=== PATIENT | female | born 1955 | race Caucasian/White ===

== ENCOUNTER 2019-08-05 10:09 | Inpatient (IN) ==
--- NOTE | 2019-08-01 13:42 | Anesthesiology Consultation ---
Date of Service August 01, 2019 Assessment & Plan (1) Encounter for pre-operative examination: Chart Review Chart Review: Acceptable Risk for Surgery and Patient NOT seen in Pre Admission Testing Consults Requested none Would it be possible to obtain an ECG from her hospital stay in January 2019 at [facility]. Patient stated she had an arrhythmia while hospitalized for pneumonia but it resolved. History Surgery Operation Date: 08/05/19 12:00 Proposed Procedures p Robotic Left Video Assisted Thoracoscopy with Upper Lobectomy and Mediastinal Lymphadenectomy - Josh Thurman MD, FACS Height/Weight Height: 5 ft 6 in Weight: 77.111 kg Allergies Allergy/AdvReac Type Severity Reaction Status Date / Time adhesive Allergy Unknown SKIN Verified 08/01/19 11:11 BLISTERS/ITCHY erythromycin base Allergy Unknown RASH Verified 08/01/19 11:11 Penicillins Allergy Unknown HIVES Verified 08/01/19 11:11 Medications Home Medications Medication Instructions Recorded Confirmed Last Taken albuterol sulfate [ProAir HFA] 2 puff INHALATION UD PRN 09/22/18 08/01/19 10/18/18 03:30 fluoxetine 20 mg PO QAM 09/22/18 08/01/19 10/18/18 03:30 fluticasone propion-salmeterol 1 inh INHALATION BID 09/22/18 08/01/19 10/18/18 03:30 [Advair Diskus] lorazepam 0.5 mg PO UD PRN 09/22/18 08/01/19 Unknown montelukast [Singulair] 10 mg PO QAM 09/22/18 08/01/19 10/17/18 09:00 ferrous gluconate 256 mg (28 mg 256 mg PO DAILY tab 07/26/19 08/01/19 Unknown iron) tablet Past Medical History Medical History Asthma CONTROLLED WITH RESCUE INHALER USE ONCE DAILY Depression History of anxiety History of cardiac arrhythmia WHILE HOSPITALIZED W/ PNEUMONIA 01/2019 [facility] - RESOLVED - NO MEDS. 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 Lung mass Persistent cough Recurrent pneumonia Past Family History Family History Mother Family history of diabetes mellitus Hypertension Heart disease Grandmother Family history of diabetes mellitus Past Surgical History Surgical History History of arthroplasty of left hip Left ADAN 10-18-2018. SAB converted to GA for inadequate block. Tolerated GETA without issues. History of arthroplasty of right hip Hx of colonoscopy Hx of dilation and curettage Hx of hysterectomy Nausea and vomiting after administration of anesthetic agent Social History Smoking Status: Never smoker Do You Dip or Chew Tobacco: No Hx Alcohol Use: No Hx Substance Use: No substance use type: does not use Testing Laboratory Results CBC 07/27/2019. WBC 6.2, hgb 11.9, hct 38.1, plt 335 Electrocardiogram Date: 09/28/18 Findings: + SB @ (56) Sinus bradycardia. LAD. Chest X-Ray Date: 05/07/19 Patchy bilateral lower lobe airspace opacity. worse in the left lung base, which may represent multifocal pneumonia.
[~2019-08-05 10:09] MED LIST: DEXAMETHASONE SOD INJ 4 MG/ML VIAL ONE; GLYCOPYRROLATE 0.2 MG/ML VIAL ONE; LIDOCAINE HCL 2% 2 ML VIAL/AMP(20MG/ML) INFIL ONE; LR 15ML/HR IV SCH; METHYLENE BLUE 0.5% 10 ML VIAL ONE; MIDAZOLAM HCL 1 MG/ML 2ML VIAL ONE; NEOSTIGMINE METHYLSULFATE 5 MG/5 ML SYR ONE; ONDANSETRON INJ 2 MG/ML 2 ML VIAL ONE; PHENYLEPHRINE HCL 10 MG/ML VIAL ONE; PROPOFOL IV EMULSION 10 MG/ML 20 ML VIAL IV ONE; fentaNYL citrate 100 MCG/2 ML VIAL ONE
[2019-08-05] MEDS ORDERED: BUPIVACAINE 0.5 % 5 MG/1 ML MPF 30ML VIAL ONE (11:56)
[2019-08-05] MEDS ORDERED: BUPIVACAINE LIPOSOME 1.3% 266 MG/20 ML VIAL ONE (11:57)
[2019-08-05] MEDS ORDERED: SODIUM CHLORIDE 0.9% PF 50 ML VIAL ONE (11:57)
[2019-08-05] MEDS ORDERED: SCOPOLAMINE 1.5 MG TDSY ONE (12:06)
--- NOTE | 2019-08-05 12:13 | History & Physical Bridge Note ---
Date of Service August 05, 2019 History & Physical Bridge Note I have examined the patient, reviewed the History & Physical and in the interval since the performance of the History & Physical I have noted the following changes of clinical significance: no changes noted
[2019-08-05] MEDS ORDERED: ALBUMIN HUMAN 5% 12.5 GM/250 ML VIAL IV ONE (12:23)
[2019-08-05] MEDS ORDERED: ePHEDrine sulfate 50 MG/ML AMP IV PRN (14:08)
[2019-08-05] MEDS ORDERED: ONDANSETRON INJ 2 MG/ML 2 ML VIAL IV PRN (14:08)
[2019-08-05] MEDS ORDERED: ATROPINE SULFATE 0.1 MG/ML 10ML SYR IV PRN (14:08)
[2019-08-05] MEDS ORDERED: ALBUTEROL HFA INHALER 8.5 GM ONE (14:23)
[2019-08-05] MEDS ORDERED: PHENYLEPHRINE 100MCG/ML 5ML SYR ONE (14:23)
[2019-08-05] MEDS ORDERED: ePHEDrine sulfate 50 MG/ML SYR ONE (14:23)
--- NOTE | 2019-08-05 16:14 | Post Operative Brief Note ---
PG Immediate Post Op with CF Date of Surgery August 05, 2019 Pre & Post Diagnosis Operation Date: 08/05/19 12:00 Pre-Op Diagnosis: Left Lung Carcinoid Post-Op Diagnosis: Left Lung Carcinoid Procedure Operation Date: 08/05/19 12:00 Actual Procedures p Robotic Video Assisted Left Thoracoscopy with Left Upper Lobectomy and Me diastinal Lymphadenectomy(Left) - Josh Thurman MD, FACS Surgeon Josh Thurman MD, FACS Office Communication Professor Eduardo MCRAE, Jeanne Awad MD Estimated Blood Loss 100 Findings Consistent with Post-Op Diagnosis Specimens Specimen Description: A. Level L8 lymph node x's2 B. Level L9 lymph node C. Level 7 lymph node D. Level L10 lymph node x's2 E. L11 lymph nodes x5 F. L12 lymph node G. Left upper lobe H. Level 5 lymph node I. Level 6 lymph node Drains Chest Tube (24 Fr. Thal chest tube) and Can Catheter
[2019-08-05] MEDS ORDERED: ROCURONIUM BROMIDE 10 MG/ML 5 ML VIAL ONE (16:18)
[2019-08-05] MEDS ORDERED: METOCLOPRAMIDE HCL INJ 5 MG/ML 2 ML VIAL IV ONE (16:30)
--- NOTE | 2019-08-05 16:43 | XRay Report ---
XR chest 1V portable HISTORY: Postop left upper lobectomy. COMPARISON: Chest CT 10/04/2018. FINDINGS: The left-sided chest tube is terminates in the left midlung zone. Suture material within th e left hilum consistent with postoperative change. Volume loss within the left hemithorax likely due to the recent lobectomy. No definite left-sided pneumothorax. The right lung is clear. No pleural eff usions. The heart is borderline enlarged. IMPRESSION: Left-sided chest tube terminates in the left midlung zone. No definite pneumothorax. Electronically signed by: Hector Hernandez M.D. 08/05/2019 4:42 PM
[2019-08-05] MEDS: fentaNYL citrate 100 MCG/2 ML VIAL IV PRN ×2 (16:52→16:57)
--- NOTE | 2019-08-05 17:03 | Anesthesiology Progress Note ---
Date of Service August 05, 2019 Anesthesia Post Procedure Vital Signs Vital Signs: Temp Pulse Pulse Resp BP BP Pulse Ox 08/05/19 17:00 85 16 131/61 100 08/05/19 16:50 61 16 146/70 H 100 08/05/19 16:40 71 20 138/68 100 08/05/19 16:33 36.3 C L 69 20 127/68 100 08/05/19 10:29 36.8 C 72 20 146/68 H 98 Pain Intensity Left Chest: Pain Intensity: 5 Transfer of Care Handoff Completed per policy Notes Mental Status: alert / awake / arousable Patient Amnestic to Procedure: Yes Nausea / Vomiting: adequately controlled Pain: adequately controlled Airway Patency, RR, SpO2: stable & adequate BP & HR: stable & adequate Hydration State: stable & adequate Anesthetic Complications: no major complications apparent
--- NOTE | 2019-08-05 17:11 | Operative Report ---
DATE OF OPERATION: 08/05/2019 PREOPERATIVE DIAGNOSIS: Carcinoid obstructing left mainstem bronchus, left upper lobe. POSTOPERATIVE DIAGNOSIS: Carcinoid obstructing left mainstem bronchus, left upper lobe. PROCEDURE: Robot-assisted thoracoscopic left upper lobectomy with mediastinal lymphadenectomy. SURGEON: Josh Thurman MD. NETWORK OPERATIONS LEAD: Gus Awa (Mr. Billings was present for the entire case and was present at the patient's bedside passing instruments and material while I was at the console and was there to close the skin incisions at the conclusion). SECOND NETWORK OPERATIONS LEAD: Jayde Awad MD ANESTHESIA: General anesthesia, endotracheal intubation using double lumen tube. SPECIFICS OF PROCEDURE AND FINDINGS: Ms. Salas is a 64-year-old female who has been followed by Dr. Ed Weathers from [facility], had recurrent pneumonias or postobstructive due to obstructing carcinoid in her left upper lobe bronchus. I evaluated these films and did not feel that a local resection would suffice. The patient has been sick multiple times from this and is quite eager to have the surgery performed. On 08/05/2019, the patient underwent uncomplicated left upper lobectomy with a da Isaac robot with a mediastinal lymphadenectomy. She tolerated it well with negligible blood loss and was extubated in the room. DESCRIPTION OF PROCEDURE: The patient brought to the operating room, laid in supine position. General anesthesia induced and endotracheal intubation was performed with a double lumen tube. After appropriate monitoring lines had been placed, the patient was positioned in the right lateral decubitus position. Left chest prepped and draped in usual sterile fashion. After appropriate timeout had been called and antibiotics given prophylactically, an incision was made for a 5 mm port just anterior to mid axillary line and seventh interspace for the camera. We could see there were no adhesions. A 5 mm posterior scope was placed and then an 8 mm scope was placed about 10 cm from the camera port. The camera port was switched to a 12 mm port. A 10 cm medial to this, another 8 mm port was placed. Finally, the assistance port was placed anteriorly just above the diaphragm between the camera port and the anterior port. Later in the case, we made another port posteriorly to position our stapler. It should be noted that Exparel 266 mg and 20 mL of solution were mixed with 30 mL of 0.25% bupivacaine and 250 mL of normal saline. The solution was then used to inject each of the port sites. It was also used to perform an intercostal block from 2nd to the 12th rib under thoracoscopic guidance by filling each of the interspaces with the solution. The robot was then docked. Inferior pulmonary ligament was taken down first in the level 9 and level 8 lymph nodes were harvested. I then went up and dissected out the level 7 packet of lymph nodes as well as a level 10 lymph nodes. We also took out the level 5 and level 6 coming around the top of the hilum. I dissected out the posterior branches to the upper lobe quite a bit during this and removing these lymph nodes and took out a level 11 node also. The lung was then retracted posteriorly and inferiorly and I went into the fissure which was almost complete. I completed this fissure posteriorly just using cautery which worked very nicely. We were able to identify the branches quite nicely the pulmonary artery, we dissected out. I then brought this down anteriorly and dissected out a large lingual branch. I completed the fissure sharply anteriorly. I then retracted the lung completely posteriorly and came up posterior to the phrenic nerve and dissected out all of the fat and lymph node packet to the level 10 and complete the level 5 and 6. This had completed our dissection around the hilum. Endo-JAIDEN stapler was used to divide the 2 branches posteriorly. I then divided the lingual artery. We then dissected out the vein and our anterior port was not in a good place to fire the staple. For this reason, another 12 mm port was placed posteriorly and the stapler came down quite nicely and we were able to take the superior pulmonary vein. I put a clip x2 and proximally and 1 distally and divided the lingual vein. This opened up the bronchus quite nicely and we removed several large lymph nodes. We then had a good angle to take the A1 and A2 segment of the left upper lobe with an Endo-JAIDEN stapler. This left just the bronchus, which was divided with an Endo-JAIDEN stapler. There was really very little in the way of bleeding. We really did not see an air leak upon inflating the lung. A large Endobag was used to remove the left upper lobe through the assistance port anteriorly, although it had to be opened a few centimeters. A 24-Chinese chest tube was placed through the camera port and directed towards the apex. A 0 Vicryl was used to close the muscle layer of the 12 mm port posteriorly as well as the assistance port, which had been opened and removed the specimen. A 4-0 Monocryl was used in running subcuticular fashion to approximate the wound edges. A large silk suture was used to hold the chest tube in place. The patient really had no air leak. Antimicrobial dressings were placed and the patient was extubated in the room. She tolerated it very well. I attest to the content of the Intraoperative Record and any orders documented therein. Any exception s are noted below.
[2019-08-05] MEDS ORDERED: LORazepam 0.5 MG TAB PO PRN (17:49)
[2019-08-05] MEDS ORDERED: ALBUTEROL HFA 8 GM INHALER INH PRN (18:00)
[2019-08-05] MEDS: D5W AND 1/2NSS 1,000 ML IV SCH (18:09)
[2019-08-05] MEDS: METOCLOPRAMIDE HCL INJ 5 MG/ML 2 ML VIAL IV SCH (18:09)
[2019-08-05] MEDS: ACETAMINOPHEN 1,000 MG/100 ML VIAL IV SCH (20:13)
[2019-08-05] MEDS: FLUTICASONE/SALMETEROL (ADVAIR) 500/50 INH 14 PUFF INH SCH (20:40)
[2019-08-05] MEDS: DOCUSATE SODIUM 100 MG CAP PO SCH (20:41)
[2019-08-05] MEDS: OXYCODONE HCL IR 5 MG TAB (IMMEDIATE RELEASE) PO PRN (20:58)
[2019-08-06] MEDS: MoRPHine SULFATE 2 MG/ML CARP IV PRN (00:01)
[2019-08-06] MEDS: ONDANSETRON INJ 2 MG/ML 2 ML VIAL IV PRN (00:01)
[2019-08-06] MEDS: METOCLOPRAMIDE HCL INJ 5 MG/ML 2 ML VIAL IV SCH ×2 (02:03→08:42)
[2019-08-06] MEDS: D5W AND 1/2NSS 1,000 ML IV SCH (03:34)
[2019-08-06] MEDS: ACETAMINOPHEN 1,000 MG/100 ML VIAL IV SCH ×3 (03:37→20:25)
[2019-08-06 06:11] LABS: Basophils # (auto) 0.01 K/uL (0-0.2); Basophils % (auto) 0.1 %; Hematocrit (blood only) 32.5 % (37-47); Hemoglobin 10.7 g/dL (12.0-16.0); Immature Granulocytes # (auto) 0.04 K/uL (0.00-0.02); Immature Granulocytes % (auto) 0.4 %; Lymphocytes # (auto) 0.68 K/uL (1.2-3.4); Mean Corpuscular Hemoglobin 29.2 pg (25-34); Mean Corpuscular Volume 88.6 fL (80-100); Mean Platelet Volume 8.9 fL (7.4-10.4); Monocytes # (auto) 1.11 K/uL (0.11-0.59); Monocytes % (auto) 9.8 %; Neutrophils % (auto) 83.7 %; Platelet Count 282 K/uL (130-400); RDW Coefficient of Variation 14.6 % (11.5-14.5); RDW Standard Deviation 47.2 fL (36.4-46.3); Red Blood Count 3.67 M/uL (4.2-5.4); White Blood Count 11.34 K/uL (4.8-10.8)
[2019-08-06 06:17] LABS: Mean Corpuscular Hgb Conc 32.9 g/dL (32-36)
[2019-08-06 06:32] LABS: BUN Creatinine Ratio 20.4 (10-20); Calcium 8.4 mg/dl (8.5-10.1); Creatinine Clr Calc Pharmacy 85.5 ml/min; Est GFR (African American) 106.1; Est GFR (Non-African American) 91.6; Potassium 4.4 mmol/L (3.5-5.1)
--- NOTE | 2019-08-06 07:07 | XRay Report ---
XR chest 1V portable CLINICAL HISTORY: [facility] COMPARISON STUDY: Chest radiograph August 05, 2019. FINDINGS: Left basilar chest tube has been partially withdrawn. Small amount of subcutaneous gas with in the left chest wall is noted. There are postoperative findings within the left lung. No pneumothor ax is visualized. There is no evidence for pulmonary edema or pneumonia. Left suprahilar nodular opac ity is present. This may reflect primary vessels or postsurgical change. IMPRESSION: 1. Partial withdrawal of the left basilar chest tube. No pneumothorax. 2. Left suprahilar nodular opacity which may reflect pulmonary vessels or postsurgical change. Electronically signed by: Tarun Garay M.D. 08/06/2019 7:05 AM
[2019-08-06] MEDS: OXYCODONE HCL IR 5 MG TAB (IMMEDIATE RELEASE) PO PRN ×2 (08:37→15:41)
[2019-08-06] MEDS: DOCUSATE SODIUM 100 MG CAP PO SCH ×2 (08:38→20:31)
[2019-08-06] MEDS: FLUTICASONE/SALMETEROL (ADVAIR) 500/50 INH 14 PUFF INH SCH ×2 (08:38→20:30)
[2019-08-06] MEDS: FLUOXETINE HCL 20 MG CAP PO SCH (08:38)
[2019-08-06] MEDS: MONTELUKAST SODIUM 10 MG TABLET PO SCH (08:38)
[2019-08-06] MEDS: ENOXAPARIN INJ 40 MG/0.4 ML SYR SQ SCH (08:40)
--- NOTE | 2019-08-06 08:43 | Progress Note ---
DATE: 08/06/2019 Ms. Salas was seen today 1 day after a lobectomy for an obstructing carcinoid of her left upper lobe bronchus. She looks very good. Her x-ray looks good. Her chest tube is down low, but it goes posteriorly. She has a small air leak. She is draining very little. She is on room air and has ambulated although she is sore. I am quite pleased with her clinical course. She has tolerated her lobectomy with lymphadenectomy quite nicely. It is my hope that we will get her out of the hospital in the next 48 hours or so. We are going to stop her IV fluids today.
[2019-08-07] MEDS: ACETAMINOPHEN 1,000 MG/100 ML VIAL IV SCH ×3 (04:06→19:58)
[2019-08-07] MEDS: OXYCODONE HCL IR 5 MG TAB (IMMEDIATE RELEASE) PO PRN ×3 (04:13→17:42)
[2019-08-07] MEDS: MONTELUKAST SODIUM 10 MG TABLET PO SCH (08:44)
[2019-08-07] MEDS: FLUOXETINE HCL 20 MG CAP PO SCH (08:44)
[2019-08-07] MEDS: FLUTICASONE/SALMETEROL (ADVAIR) 500/50 INH 14 PUFF INH SCH ×2 (08:44→20:17)
[2019-08-07] MEDS: DOCUSATE SODIUM 100 MG CAP PO SCH ×2 (08:44→20:18)
[2019-08-07] MEDS: ENOXAPARIN INJ 40 MG/0.4 ML SYR SQ SCH (08:44)
--- NOTE | 2019-08-07 09:38 | Progress Note ---
DATE: 08/07/2019 Ms. Salas is now 48 hours status post a robot-assisted thoracoscopic left upper lobectomy for an obstructing carcinoid in the left upper lobe bronchus. She looks very good. She is much improved from yesterday. She is ambulating in the hallway. She complains of a bit shortness of breath at times when she feels "tight," but at other times she is able to ambulate without difficulty and is not short of breath. The patient has no air leak today. She has drained a little over 100 mL from her chest tube. She is on room air. She has 96% saturations. I think she looks quite good. We will probably remove this chest tube and let her go home tomorrow.
[2019-08-07] MEDS: MoRPHine SULFATE 2 MG/ML CARP IV PRN (19:12)
[2019-08-07] MEDS: ONDANSETRON INJ 2 MG/ML 2 ML VIAL IV PRN (19:13)
[2019-08-08] MEDS: ACETAMINOPHEN 1,000 MG/100 ML VIAL IV SCH (03:34)
--- NOTE | 2019-08-08 08:22 | XRay Report ---
SINGLE VIEW CHEST CLINICAL HISTORY: Chest tube removal. FINDINGS: An AP, portable, upright chest radiograph is compared to study dated 08/06/2019 and correlat ed with chest CT dated 10/04/2018. The examination is degraded by portable technique and patient rota tion. A left-sided chest tube has been removed. The cardiomediastinal silhouette is unremarkable. The re is postoperative change and volume loss consistent with left-sided pulmonary resection. Suture mat erial projects over the left midlung. There is bibasilar scarring/atelectasis. No airspace consolidat ion is seen typical for pneumonia and there is no large pleural effusion. No pneumothorax is seen. Th e skeletal structures are osteopenic. The bony thorax is grossly intact. Subcutaneous emphysema is ag ain seen along the left lower chest wall. IMPRESSION: 1. A left-sided chest tube has been removed. No pneumothorax is identified. 2. There is postoperative change and volume loss seen in the left lung. Electronically signed by: Claudio Quijano M.D. 08/08/2019 8:21 AM
[2019-08-08] MEDS: MONTELUKAST SODIUM 10 MG TABLET PO SCH (08:28)
[2019-08-08] MEDS: FLUTICASONE/SALMETEROL (ADVAIR) 500/50 INH 14 PUFF INH SCH (08:28)
[2019-08-08] MEDS: FLUOXETINE HCL 20 MG CAP PO SCH (08:29)
[2019-08-08] MEDS: DOCUSATE SODIUM 100 MG CAP PO SCH (08:29)
[2019-08-08] MEDS: ENOXAPARIN INJ 40 MG/0.4 ML SYR SQ SCH (09:03)
--- NOTE | 2019-08-09 02:35 | Discharge Summary ---
DATE OF ADMISSION: 08/05/2019. DATE OF DISCHARGE: 08/08/2019 DISCHARGE DIAGNOSIS: Apparent carcinoid left upper lobe bronchus. POSTOPERATIVE DIAGNOSIS: Apparent carcinoid left upper lobe bronchus. HOSPITAL COURSE: Celia Salas is a very nice 64-year-old female who has had repeated postobstructive pneumonias from a mass in her left upper lobe bronchus which appears to be a carcinoid by biopsy. It was a bit distant from the takeoff, but there was no way we are going to be able to salvage one of the segments. I had a long discussion with the patient in the office and we elected to proceed with a left upper lobectomy on 08/05/2019. On 08/05/2019, patient underwent uncomplicated thoracoscopic left upper lobectomy with mediastinal lymphadenectomy. She was extubated in the room with very little blood loss. She had a tiny air leak the night after surgery which resolved. On postop day 2, she had no air leak. In the morning of postop day 3, I removed her chest tube. Her x-ray looked quite good afterwards. She did have volume loss as expected. No effusions and no pneumothoraces. The patient was ambulating in the hallway. She is tolerating a house diet. She did very well with this. I have asked to return to see me in 1 week so we can go over the pathology. We also gave discharge instructions and course.
== END 2019-08-08 10:27 | disposition home or self-care (01) | DRG 165 ==
LOC: ASU 10:09 → 3W 16:20
DX: D3A.090 Benign carcinoid tumor of the bronchus and lung; Z79.899 Other long term (current) drug therapy

== ENCOUNTER 2020-02-01 05:35 | Inpatient (IN) ==
--- NOTE | 2020-01-26 10:17 | Anesthesiology Consultation ---
Date of Service January 26, 2020 Assessment & Plan (1) Encounter for pre-operative examination: Chart Review Chart Review: Acceptable Risk for Surgery and Patient NOT seen in Pre Admission Testing Seen by PCP 01/13/2020 = PCP aware of upcoming thoracic/diaphragm procedure with Dr. Thurman in January 2020. Recent labs are reviewed without any alarming concerns. Aware EKG was done yesterday at [facility]. Aware of anemia. History Surgery Operation Date: 02/01/20 07:30 Proposed Procedures p Left Robotic Hemidiaphragmatic Plication, Thoracoscopy - Josh Thurman MD, FACS Height/Weight Height: 5 ft 5 in Weight: 77.111 kg Allergies Allergy/AdvReac Type Severity Reaction Status Date / Time adhesive Allergy Unknown SKIN Verified 01/25/20 14:56 BLISTERS/ITCHY erythromycin base Allergy Unknown RASH Verified 01/25/20 14:56 Penicillins Allergy Unknown HIVES Verified 01/25/20 14:56 Medications Home Medications Medication Instructions Recorded Confirmed Last Taken albuterol sulfate [ProAir HFA] 2 puff INHALATION UD PRN 09/22/18 01/25/20 08/05/19 08:30 fluoxetine 20 mg PO QAM 09/22/18 01/25/20 08/05/19 08:00 fluticasone propion-salmeterol 1 inh INHALATION BID 09/22/18 01/25/20 08/05/19 08:00 [Advair Diskus] lorazepam 0.5 mg PO UD PRN 09/22/18 01/25/20 Unknown montelukast [Singulair] 10 mg PO QAM 09/22/18 01/25/20 08/04/19 19:00 tramadol [Ultram] 50 mg PO QID PRN #15 tab 08/08/19 01/25/20 Unknown Past Medical History Medical History (Updated 01/26/20 @ 10:27 by Sis Ellis PA-C) Asthma RESC. INH 3X PER DAY COPD (chronic obstructive pulmonary disease) Per records Depression History of anxiety History of cardiac arrhythmia WHILE HOSPITALIZED W/ PNEUMONIA 01/2019 [facility] - RESOLVED - NO MEDS. NO FURTHER WORK UP NEEDED WITH ASSOCIATE PROFESSOR OF MATHEMATICS. (Per 01/13/20 PCP note- hx of pSVT. Pt tolerated lobectomy without significant noted issues) Lung mass REMOVED IN JUL 2019> NO CHEMO Persistent cough Recurrent pneumonia Shortness of breath REASON FOR PROCEDURE Past Family History Family History Mother Family history of diabetes mellitus Hypertension Heart disease Grandmother Family history of diabetes mellitus Past Surgical History Surgical History History of arthroplasty of left hip Left ADAN 10-18-2018. SAB converted to GA for inadequate block. Tolerated GETA without issues. History of arthroplasty of right hip History of lobectomy of lung LEFT JUL 2019 Hx of colonoscopy Hx of dilation and curettage Hx of hysterectomy Nausea and vomiting after administration of anesthetic agent Social History Smoking Status: Never smoker Do You Dip or Chew Tobacco: No Hx Alcohol Use: No Hx Substance Use: No substance use type: does not use Testing Laboratory Results 01/06/2020 = WBC: 10.3 H/H: 11.6/36.8 (chronic anemia- stable and improved from previous) PLATELETS: 462 SODIUM: 139 POTASSIUM: 4.4 CHLORIDE: 103 CO2: 23 BUN: 21 CREATININE: 0.55 GLUCOSE: 132 Electrocardiogram Date: 01/12/20 Findings: + NSR @ (65) and + no change from (September 28, 2018) Chest X-Ray Date: 08/15/19 Postsurgical changes are present on the left. There is a small left-sided hydropneumothorax the maximal pleural separation of 14 mm. There is no failure. The right lung appears clear. Echocardiogram Date: 05/31/15 EF: 60% Other Findings: + LVH (Mild/concentric) Mild MR. Mild SC. Stress Test Date: 05/31/15 Type: exercise Stress EKG was negative for myocardial ischemia at 86% of the maximum predicted heart rate. 4.6 METs of activity was achieved. Low level of exercise achieved. No symptoms of angina were reproduced with exercise. No arrhythmias reproduced with exercise. Other Testing [place] sniff test 01/12/2020 = Elevation of left hemidiaphragm with minimal diaphragmatic excursion. No definite paradoxical motion After further review with Dr. Josh Thurman, there is evidence of paradoxical motion of the left hemidiaphragm (for example images 36-39). This is demonstrated several times during the exam and although subtle is present. The left hemidiaphragm arises approximately half a rib interspace during right hemidiaphragm excursion.
[2020-02-01] MEDS ORDERED: LR 15ML/HR IV SCH (06:00)
[2020-02-01] MEDS ORDERED: fentaNYL citrate 100 MCG/2 ML VIAL ONE ×3 (06:53→11:24)
[2020-02-01] MEDS ORDERED: ONDANSETRON INJ 2 MG/ML 2 ML VIAL ONE (06:53)
[2020-02-01] MEDS ORDERED: ROCURONIUM BROMIDE 10 MG/ML 5 ML VIAL ONE ×5 (06:53→14:11)
[2020-02-01] MEDS ORDERED: LIDOCAINE HCL 2% 2 ML VIAL/AMP(20MG/ML) INFIL ONE (06:53)
[2020-02-01] MEDS ORDERED: PROPOFOL IV EMULSION 10 MG/ML 20 ML VIAL IV ONE (06:53)
[2020-02-01] MEDS ORDERED: DEXAMETHASONE SOD INJ 4 MG/ML VIAL ONE (06:53)
[2020-02-01] MEDS ORDERED: MIDAZOLAM HCL 1 MG/ML 2ML VIAL ONE (06:53)
[2020-02-01] MEDS ORDERED: SCOPOLAMINE 1.5 MG TDSY ONE (07:06)
--- NOTE | 2020-02-01 07:13 | History & Physical Bridge Note ---
Date of Service February 01, 2020 History & Physical Bridge Note I have examined the patient, reviewed the History & Physical and in the interval since the performance of the History & Physical I have noted the following changes of clinical significance: no changes noted
[2020-02-01] MEDS ORDERED: ePHEDrine sulfate 50 MG/ML AMP IV PRN (07:15)
[2020-02-01] MEDS ORDERED: ATROPINE SULFATE 0.1 MG/ML 10ML SYR IV PRN (07:15)
[2020-02-01] MEDS ORDERED: ONDANSETRON INJ 2 MG/ML 2 ML VIAL IV PRN (07:15)
[2020-02-01] MEDS ORDERED: HYDROmorphone INJ 1 MG/ML SYRINGE IV PRN (07:15)
[2020-02-01] MEDS ORDERED: fentaNYL citrate 100 MCG/2 ML VIAL IV PRN (07:15)
[2020-02-01] MEDS ORDERED: BUPIVACAINE LIPOSOME 1.3% 266 MG/20 ML VIAL ONE (07:24)
[2020-02-01] MEDS ORDERED: BUPIVACAINE 0.5 % 5 MG/1 ML MPF 30ML VIAL ONE (07:24)
[2020-02-01] MEDS ORDERED: SODIUM CHLORIDE 0.9% PF 50 ML VIAL ONE (07:24)
[2020-02-01] MEDS ORDERED: SCOPOLAMINE 1.5 MG TDSY TD STA (07:33)
[2020-02-01] MEDS ORDERED: CLINDAMYCIN PHOS 300 MG/2 ML VIAL ONE (08:21)
[2020-02-01] MEDS ORDERED: SUGAMMADEX SODIUM 200 MG/2 ML VIAL IV ONE (09:48)
--- NOTE | 2020-02-01 11:25 | Operative Report ---
PG Post Operative Report Pre & Post Diagnosis Operation Date: 02/01/20 07:30 Pre-Op Diagnosis: Left primo-diaphragm Paralysis Post-Op Diagnosis: Left primo-diaphragm Paralysis I identified the patient and participated in the time-out.: Yes Procedure Operation Date: 02/01/20 07:30 Actual Procedures p Left Robotic Hemidiaphragmatic Plication, Thoracoscopy, Lysis of adhesions(Left) - Josh Thurman MD, FACS Surgeon Josh Thurman MD, FACS O[employer]her Hussein MCRAE Estimated Blood Loss 50 Findings Consistent with Post-Op Diagnosis Specimens Left lower lobe nodule Description of Procedure This 64-year-old female has a history of carcinoid underwent a robotic left upper lobectomy with mediastinal lymphadenectomy 6 months ago. She developed a left hemidiaphragm paralysis. She is quite short of breath. She been worked up by her solutions delivery consultant Dr. Ed Weathers from [facility] we feel that she is quite symptomatic from her diaphragm paralysis. This reason I had a long talk to the patient the office we elected to proceed with a diaphragm plication. She is quite frustrated with her lack of endurance caused by her dyspnea. On 02/01/2020 patient underwent an uncomplicated robot-assisted left thoracoscopy with repair of the diaphragm. It went very well. She had more adhesions and I thought. It appeared she had a mass in her anterior lateral left lower lobe attached to the chest wall and after taking this down I resected this with a stapler. This was sent to pathology. We had negligible blood loss and really no air leak at the conclusion of the case. The patient was extubated in the room. She did very well. Procedure: Patient is brought to operating room laid in the supine position. General anesthesia was induced and endotracheal intubation was performed with a single- lumen tube. Patient was then turned in the right lateral decubitus position after she was prepped and draped in the usual sterile fashion we called a timeout. After prophylactic antibiotics had been administered 5 mm port was placed just posterior to the scapular tip. To be seen there were some adhesions but really none over the diaphragm. 8 mm port was then placed posteriorly and an 8 mm port was placed anteriorly placed a 12 mm assistance port just above the diaphragm anteriorly., Dioxide was insufflated. A total of 266 mg of Exparel and 20 cc of solution were mixed with 30 cc of 0.5% mepivacaine and 250 cc of normal saline. The solution was used to inject each of the port sites before we made the incisions. We then used to perform an intercostal block from the second to the 12th rib intrathoracic Sujit. Patient had adhesions which were taken down sharply using cautery. This rather difficult they were a bit more dense than I thought. I then identified the phrenic nerve and followed it up and I did not see an obvious area where it had been injured. Attention was then turned towards the diaphragm. There are actually some diaphragm adhesions anteriorly which were taken down. We then saw a very floppy diaphragm. A 0 Vicryl V lock suture was used to bring the anterior to the po sterior diaphragm in the middle. This flattened the diaphragm out quite nicely. This was reinforced with Jason pledgets. Using 0 Tycron I then performed interrupted horizontal mattress sutures with pledgets on both sides to pull the diaphragm together in a line going from the anterior lateral to the posterior medial aspect of the diaphragm. This included the tendinous diaphragm and the muscle posteriorly. Care was taken to avoid injury to the underlying spleen which was easily seen with the CO2 insufflation under the diaphragm agreeable to pull this off quite safely at it appeared. When we had finished I was quite pleased. We saw really no bleeding. 1 area of the lung which is been attached to the chest wall was wedged out using a Endo JAIDEN stapler. I did not like the appearance of it. We really saw very little in the way of an air leak. We lost very little in the way of blood. 24 Palestinian chest tube was placed through the assistance port directed all the way up to the apex and sutured in place with heavy silk suture. The camera port which is a 12 mm port which had been where we had placed a 5 mm port initially at the muscle layers closed with 0 Vicryl. 4 Monocryl was used in running subsequent fashion approximate the wound edges. Patient tolerated well was extubated in the room and transported to the postanesthesia care unit in stable condition. I attest to the content of the Intraoperative Record and any orders documented therein. Any exceptions are noted below.
[2020-02-01] MEDS ORDERED: METOCLOPRAMIDE HCL INJ 5 MG/ML 2 ML VIAL IV ONE (11:35)
--- NOTE | 2020-02-01 11:47 | XRay Report ---
XR chest 1V portable HISTORY: Postop. Diaphragm plication COMPARISON: Chest 08/15/2019. FINDINGS: Left-sided chest tube terminates in the medial left upper lung zone. [id number] left apical pneumothorax is noted. Left basilar densities favor postoperative change. Small nodular focus within the right midlung zone which is new from the prior study. The heart is normal in size. IMPRESSION: 1. Small to moderate left pneumothorax. Left-sided chest tube appears in good position. 2. Small nodular focus within the right midlung zone could represent inflammatory/infectious change. This bears watching on future examinations. ACT 112: Negative or not required by law. Electronically signed by: Hector Hernandez M.D. 02/01/2020 11:45 AM
[2020-02-01 11:58] LABS: iSTAT Arterial Blood Gas HCO3 24 meg/L (19-24); iSTAT Arterial Blood Gas pCO2 57 mmHg (35-46); iSTAT Arterial Blood Gas pH 7.23 (7.35-7.45); iSTAT Arterial Blood Gas pO2 271 mmHg (80-95); iSTAT Carbon Dioxide 25 mmol/L (24-31); iSTAT Hematocrit 30 % (37-47); iSTAT Hemoglobin 10.2 g/dl (12.0-16.0); iSTAT Potassium 4.3 mmol/L (3.3-5.0); iSTAT Sodium 135 mmol/L (135-144)
[2020-02-01 11:58] LABS: iSTAT Arterial Blood Gas HCO3 24 meg/L (19-24); iSTAT Arterial Blood Gas pCO2 46 mmHg (35-46); iSTAT Arterial Blood Gas pH 7.32 (7.35-7.45); iSTAT Arterial Blood Gas pO2 367 mmHg (80-95); iSTAT Carbon Dioxide 25 mmol/L (24-31); iSTAT Hematocrit 29 % (37-47); iSTAT Hemoglobin 9.9 g/dl (12.0-16.0); iSTAT Potassium 4.5 mmol/L (3.3-5.0); iSTAT Sodium 136 mmol/L (135-144)
[2020-02-01] MEDS ORDERED: ACETAMINOPHEN 1000 MG/100 ML IV IV ONE (12:20)
[2020-02-01] MEDS ORDERED: ACETAMINOPHEN 1,000 MG/100 ML VIAL IV STA (12:23)
[2020-02-01] MEDS ORDERED: MoRPHine SULFATE 2 MG/ML CARP IV PRN (13:16)
[2020-02-01] MEDS ORDERED: LORazepam 0.5 MG TAB PO PRN (13:16)
--- NOTE | 2020-02-01 14:14 | Anesthesiology Progress Note ---
Date of Service February 01, 2020 Anesthesia Post Procedure Vital Signs Vital Signs: Temp Pulse Pulse Resp BP Pulse Ox 02/01/20 13:59 85 16 149/85 H 97 02/01/20 13:28 84 16 146/84 H 97 02/01/20 13:00 36.7 C 85 18 138/81 95 02/01/20 12:35 36.8 C 85 24 156/77 H 100 02/01/20 12:25 36.8 C 85 18 148/78 H 99 02/01/20 12:15 36.8 C 88 19 139/81 93 02/01/20 12:05 96 H 27 H 152/109 H 93 02/01/20 11:55 93 H 25 H 149/91 H 98 02/01/20 11:45 94 H 25 H 139/98 100 02/01/20 11:35 36.3 C L 100 H 15 115/84 100 02/01/20 06:13 36.7 C 73 20 136/80 97 Pain Intensity Left Shoulder: Pain Intensity: 4 Transfer of Care Handoff Completed per policy Notes Mental Status: alert / awake / arousable and participated in evaluation Patient Amnestic to Procedure: Yes Nausea / Vomiting: adequately controlled Pain: adequately controlled Airway Patency, RR, SpO2: stable & adequate BP & HR: stable & adequate Hydration State: stable & adequate Anesthetic Complications: no major complications apparent and Pt Satisfied with anesthetic care
[2020-02-01 14:25] LABS: Creatinine Clr Calc Pharmacy 87.1 ml/min; Est GFR (African American) 107.1; Est GFR (Non-African American) 92.4
[2020-02-01] MEDS ORDERED: PROMETHAZINE HCL 12.5 MG in SODIUM CHLORIDE 0.9% 50 ML IV ONE (15:30)
[2020-02-01] MEDS: OXYCODONE HCL IR 5 MG TAB (IMMEDIATE RELEASE) PO PRN ×2 (16:03→23:38)
[2020-02-01] MEDS: ONDANSETRON INJ 2 MG/ML 2 ML VIAL IV PRN (16:03)
[2020-02-01] MEDS: CHECK SCOPOLAMINE PATCH PLACEMENT SCH ×2 (17:05→23:39)
[2020-02-01] MEDS: D5W AND 1/2NSS 1,000 ML IV SCH (17:05)
[2020-02-01] MEDS: METOCLOPRAMIDE HCL INJ 5 MG/ML 2 ML VIAL IV SCH (19:53)
[2020-02-01] MEDS: ACETAMINOPHEN 1,000 MG/100 ML VIAL IV SCH (19:53)
[2020-02-01] MEDS: DOCUSATE SODIUM 100 MG CAP PO SCH (20:01)
[2020-02-01] MEDS ORDERED: Nursing to Pharmacy Communication ONE (21:17)
[2020-02-01] MEDS: FLUTICASONE/VILANTEROL 200/25MCG 14 PUFFS/INHALER INH SCH (21:20)
[2020-02-02] MEDS: METOCLOPRAMIDE HCL INJ 5 MG/ML 2 ML VIAL IV SCH (03:11)
[2020-02-02] MEDS: ACETAMINOPHEN 1,000 MG/100 ML VIAL IV SCH (03:11)
[2020-02-02] MEDS: D5W AND 1/2NSS 1,000 ML IV SCH (03:46)
[2020-02-02] MEDS: OXYCODONE HCL IR 5 MG TAB (IMMEDIATE RELEASE) PO PRN (05:37)
[2020-02-02] MEDS ORDERED: CLINDAMYCIN PHOS 900 MG/6 ML VIAL IV SCH (06:00)
--- NOTE | 2020-02-02 07:02 | XRay Report ---
XR chest 1V portable CLINICAL HISTORY: diaphragm plication COMPARISON STUDY: Chest radiograph February 01, 2020. FINDINGS: Nodular density within the right midlung is again noted. Left chest tube is in place. Displ aced pleural line is again suspected. This represent a left pneumothorax which has decreased in size since prior exam. There is mild left basilar opacity. Subcutaneous gas within the left chest wall is again noted. There is no evidence for pulmonary edema. There is no right pneumothorax. Cardiomediasti nal silhouette is stable. IMPRESSION: Left chest in place. Decrease in size of a left pneumothorax. ACT 112: Negative or not required by law. Electronically signed by: Tarun Garay M.D. 02/02/2020 7:01 AM
--- NOTE | 2020-02-02 07:35 | Anesthesiology Progress Note ---
Date of Service February 02, 2020 Anesthesia Post Procedure Vital Signs Vital Signs: Temp Pulse Pulse Resp BP BP Pulse Ox 02/02/20 07:03 36.9 C 62 16 151/74 H 92 02/02/20 05:41 152/84 H 02/02/20 05:36 37.0 C 62 16 91 02/02/20 01:00 37.1 C 80 16 143/81 H 92 02/01/20 23:02 37.2 C 71 18 136/75 94 02/01/20 21:05 36.9 C 75 18 130/76 95 02/01/20 19:04 37.0 C 81 18 131/78 95 02/01/20 17:08 36.8 C 80 16 119/80 95 02/01/20 16:00 36.6 C 73 18 133/79 94 02/01/20 14:59 82 16 150/87 H 98 02/01/20 13:59 85 16 149/85 H 97 02/01/20 13:28 84 16 146/84 H 97 02/01/20 13:00 36.7 C 85 18 138/81 95 02/01/20 12:35 36.8 C 85 24 156/77 H 100 02/01/20 12:25 36.8 C 85 18 148/78 H 99 02/01/20 12:15 36.8 C 88 19 139/81 93 02/01/20 12:05 96 H 27 H 152/109 H 93 02/01/20 11:55 93 H 25 H 149/91 H 98 02/01/20 11:45 94 H 25 H 139/98 100 02/01/20 11:35 36.3 C L 100 H 15 115/84 100 Pain Intensity Left Shoulder: Pain Intensity: 4 Left Flank: Pain Intensity: 5 Notes Mental Status: alert / awake / arousable and participated in evaluation Patient Amnestic to Procedure: Yes Nausea / Vomiting: adequately controlled Pain: adequately controlled Airway Patency, RR, SpO2: stable & adequate BP & HR: stable & adequate Hydration State: stable & adequate Anesthetic Complications: no major complications apparent and Pt Satisfied with anesthetic care
[2020-02-02] MEDS: ENOXAPARIN INJ 40 MG/0.4 ML SYR SQ SCH (08:47)
[2020-02-02] MEDS: CHECK SCOPOLAMINE PATCH PLACEMENT SCH ×2 (08:47→16:13)
[2020-02-02] MEDS: FLUOXETINE HCL 20 MG CAP PO SCH (08:47)
[2020-02-02] MEDS: DOCUSATE SODIUM 100 MG CAP PO SCH ×2 (08:47→21:24)
[2020-02-02] MEDS: MONTELUKAST SODIUM 10 MG TABLET PO SCH (08:47)
[2020-02-02] MEDS: FLUTICASONE/VILANTEROL 200/25MCG 14 PUFFS/INHALER INH SCH (08:47)
--- NOTE | 2020-02-02 09:18 | Progress Notes ---
DATE: 02/02/2020 Ms. Salas is 1 day status post a reoperative robot-assisted left thoracoscopic repair of a hemidiaphragm paralysis. We performed a plication and she tolerated it quite well. She had a tiny air leak this morning. She is draining some serous fluid. Otherwise, I am quite pleased with her. Her x-ray looks much improved. She is ambulating in the hallway and tolerating a regular diet. We will stop her IVs today and get her up more. I will hopefully be able to take this chest tube out in the next few days.
[2020-02-02] MEDS: ACETAMINOPHEN 325 MG TAB PO SCH ×3 (11:28→21:24)
[2020-02-02] MEDS: ONDANSETRON INJ 2 MG/ML 2 ML VIAL IV PRN ×2 (11:28→16:13)
[2020-02-02] MEDS: ALBUTEROL HFA 8 GM INHALER INH PRN (12:06)
[2020-02-03] MEDS: CHECK SCOPOLAMINE PATCH PLACEMENT SCH ×3 (00:12→16:26)
[2020-02-03] MEDS: ACETAMINOPHEN 325 MG TAB PO SCH ×4 (04:47→22:04)
--- NOTE | 2020-02-03 07:39 | XRay Report ---
XR chest 1V portable CLINICAL HISTORY: pneumothorax COMPARISON STUDY: Chest radiograph February 02, 2020. FINDINGS: Left chest tube is in place. There is subcutaneous gas within the left chest wall as before . Postoperative findings within the left hemithorax are noted. A possible pleural reflection within t he left upper hemithorax is noted. However, lung markings are noted beyond this reflection. This coul d reflect an accessory fissure. A small pneumothorax could appear similar. There is no definite pneum othorax. Mild left basilar opacity is noted. Minimal right midlung opacity is noted. IMPRESSION: 1. Left chest tube in place. No definite pneumothorax. Possible pleural reflection within the left u pper hemithorax however lung markings noted beyond this reflection. This may reflect a fissure. A sma ll anterior pneumothorax could appear similar. 2. Mild left basilar opacity. ACT 112: Negative or not required by law. Electronically signed by: Tarun Garay M.D. 02/03/2020 7:38 AM
[2020-02-03] MEDS: ALBUTEROL HFA 8 GM INHALER INH PRN ×2 (08:14→16:29)
[2020-02-03] MEDS: DOCUSATE SODIUM 100 MG CAP PO SCH ×2 (08:36→20:35)
[2020-02-03] MEDS: FLUOXETINE HCL 20 MG CAP PO SCH (08:37)
[2020-02-03] MEDS: FLUTICASONE/VILANTEROL 200/25MCG 14 PUFFS/INHALER INH SCH (08:37)
[2020-02-03] MEDS: MONTELUKAST SODIUM 10 MG TABLET PO SCH (08:37)
[2020-02-03] MEDS: ENOXAPARIN INJ 40 MG/0.4 ML SYR SQ SCH (08:38)
--- NOTE | 2020-02-03 09:14 | Progress Notes ---
DATE: 02/03/2020 Ms. Salas is now 2 days status post her reoperative left robot-assisted thoracoscopy with a diaphragm plication due to paralysis of her left hemidiaphragm. Her x-ray continues to look good. She has a little bit of fluid at the base; however, I do not see a pneumothorax. She has a persistent air leak, although it is smaller. I had a long talk with Celia today and explained that her chest tube will need to stay in until she stops leaking. I am a bit surprised that she is leaking as she had a tiny air leak which we stapled over during the case. I did not see an air leak at the conclusion, although she had a small one yesterday and a bit smaller today. We will have to wait until this air leak resolves before discharging her.
[2020-02-03] MEDS: OXYCODONE HCL IR 5 MG TAB (IMMEDIATE RELEASE) PO PRN (20:33)
[2020-02-04] MEDS: CHECK SCOPOLAMINE PATCH PLACEMENT SCH (00:27)
[2020-02-04] MEDS: OXYCODONE HCL IR 5 MG TAB (IMMEDIATE RELEASE) PO PRN (02:05)
[2020-02-04] MEDS: ONDANSETRON INJ 2 MG/ML 2 ML VIAL IV PRN (02:07)
[2020-02-04] MEDS: ACETAMINOPHEN 325 MG TAB PO SCH ×4 (05:01→21:40)
[2020-02-04 06:17] LABS: Creatinine Clr Calc Pharmacy 118.5 ml/min; Est GFR (African American) 118.5; Est GFR (Non-African American) 102.3
[2020-02-04] MEDS: ALBUTEROL HFA 8 GM INHALER INH PRN (06:54)
[2020-02-04] MEDS: MONTELUKAST SODIUM 10 MG TABLET PO SCH (08:27)
[2020-02-04] MEDS: FLUTICASONE/VILANTEROL 200/25MCG 14 PUFFS/INHALER INH SCH (08:27)
[2020-02-04] MEDS: DOCUSATE SODIUM 100 MG CAP PO SCH ×2 (08:27→21:40)
[2020-02-04] MEDS: FLUOXETINE HCL 20 MG CAP PO SCH (08:27)
[2020-02-04] MEDS: ENOXAPARIN INJ 40 MG/0.4 ML SYR SQ SCH (08:28)
--- NOTE | 2020-02-04 09:50 | XRay Report ---
XR chest 1V portable CLINICAL HISTORY: s/p diaphragm plication COMPARISON STUDY: Chest radiograph February 03, 2020. FINDINGS: Left chest tube is in place. There is subcutaneous gas within the left chest wall as before . Postoperative findings within the left hemithorax are noted. A possible pleural reflection within t he left upper hemithorax is noted. However, lung markings are noted beyond this reflection. This coul d reflect an accessory fissure. A small pneumothorax could appear similar. There is no definite pneum othorax. Mild left basilar opacity is noted. Minimal right midlung opacity is noted. IMPRESSION: 1. Left chest tube in place. No definite pneumothorax. Possible pleural reflection within the left u pper hemithorax however lung markings noted beyond this reflection. This may reflect a fissure. A sma ll anterior pneumothorax could appear similar. 2. Mild left basilar opacity. ACT 112: Negative or not required by law. Electronically signed by: Hector Hernandez M.D. 02/04/2020 9:49 AM No change from XR chest 1V portable with report dated 02/03/2020 7:38 AM.
[2020-02-04] MEDS: KETOROLAC 30 MG/ML VIAL IV PRN ×2 (10:29→19:28)
--- NOTE | 2020-02-04 10:33 | Progress Notes ---
DATE: 02/04/2020 The Celia Salas was seen today on 02/04/2020. She is now postoperative day #3 status post a reoperative robot-assisted left thoracoscopy with a diaphragm plication. She does not have an air leak today. She has drained very little from her chest tube. She is having significant pain in her neck and head which she said was due to her "arthritis in her neck." I am going to give her some parenteral Toradol for the next 24 hours and if she does not have an air leak tomorrow, I will remove her chest tube and discharge her. MTDMojgan
[2020-02-05] MEDS: ACETAMINOPHEN 325 MG TAB PO SCH ×4 (05:03→22:05)
[2020-02-05] MEDS: FLUTICASONE/VILANTEROL 200/25MCG 14 PUFFS/INHALER INH SCH (08:34)
[2020-02-05] MEDS: DOCUSATE SODIUM 100 MG CAP PO SCH ×2 (08:34→22:05)
[2020-02-05] MEDS: FLUOXETINE HCL 20 MG CAP PO SCH (08:35)
[2020-02-05] MEDS: ENOXAPARIN INJ 40 MG/0.4 ML SYR SQ SCH (08:35)
[2020-02-05] MEDS: MONTELUKAST SODIUM 10 MG TABLET PO SCH (08:35)
--- NOTE | 2020-02-05 11:02 | XRay Report ---
XR chest 2V PA/lateral HISTORY: 64 years-old Female diaphragm plication COMPARISON: Chest radiograph 02/04/2020 TECHNIQUE: PA and lateral views of the chest FINDINGS: Cardiomediastinal and hilar silhouettes appear unchanged. A left-sided chest tube is in stable positi oning. A small to moderate left-sided hydropneumothorax is noted. Apical pleural separation of 10 mm. Fluid at the left lung base is mildly loculated. Postoperative changes of the left midlung with asso ciated ill-defined opacities. The right lung is generally clear. No overt pulmonary edema. Bones appe ar grossly intact. Subcutaneous emphysema of the left lateral chest wall. IMPRESSION: 1. Postoperative changes of the left lung with small to moderate left-sided hydropneumothorax. 2. Left midlung and left lung base airspace opacities have slightly progressed. ACT 112: Negative or not required by law. The above report was generated using voice recognition software. It may contain grammatical, syntax o r spelling errors. Electronically signed by: Venkata Robin M.D. 02/05/2020 11:01 AM
--- NOTE | 2020-02-05 11:45 | Progress Notes ---
DATE: 02/05/2020 Celia Salas is on postop day #4 status post a reoperative robot-assisted thoracoscopic left hemidiaphragm plication. Surprisingly, she has a small air leak. She did not appear to have one yesterday, but I do not think the tube is working well as she was draining around it. She is not draining today around it on my exam, but she does have a small air leak. I thought her x-ray looked quite good yesterday except for some opacification of the left base. We are going to check a chest x-ray in the department today. I have explained to the patient that I cannot discharge her until her air leak stops. She understands. She sounds very good on exam and her incisions are clean. JOHNSON
[2020-02-05] MEDS: KETOROLAC 30 MG/ML VIAL IV PRN (12:13)
[2020-02-06] MEDS: ACETAMINOPHEN 325 MG TAB PO SCH ×2 (03:00→09:04)
[2020-02-06 07:35] VITALS: BP 123/78; TEMP 98.2; O2SAT 94
[2020-02-06] MEDS: FLUTICASONE/VILANTEROL 200/25MCG 14 PUFFS/INHALER INH SCH (09:04)
[2020-02-06] MEDS: FLUOXETINE HCL 20 MG CAP PO SCH (09:05)
[2020-02-06] MEDS: MONTELUKAST SODIUM 10 MG TABLET PO SCH (09:05)
[2020-02-06] MEDS: DOCUSATE SODIUM 100 MG CAP PO SCH (09:05)
[2020-02-06] MEDS: ENOXAPARIN INJ 40 MG/0.4 ML SYR SQ SCH (09:06)
--- NOTE | 2020-02-06 10:28 | XRay Report ---
XR chest 1V portable CLINICAL HISTORY: 64 years-old Female presenting with s/p VATS. TECHNIQUE: Portable upright AP view of the chest was obtained. COMPARISON: 02/05/2020. FINDINGS: Left pleural drain position at the paramediastinal left upper lung unchanged. Soft tissue emphysema a long the inferior left lateral chest wall as on prior exam. Obscuration of the left heart border. Dorothy vation of the left hemidiaphragm. Persistent left basilar opacity with suspected underlying effusion. The prior left apical pneumothorax is less apparent with a portion noted medially. Suture margins ma y be present at the periphery of the left lung base. Right lung and pleural space clear. Degenerative changes of the thoracic spine. Upper abdomen normal. IMPRESSION: 1. Decreased size of the left pneumothorax with the left pleural drain in place. 2. Persistent left basilar opacity and small left pleural effusion. ACT 112: Negative or not required by law. Electronically signed by: Diego Espinosa M.D. 02/06/2020 10:26 AM
[2020-02-06] MEDS ORDERED: levoFLOXacin 500 MG TAB PO SCH (11:00)
--- NOTE | 2020-02-06 11:25 | Discharge Summary (DS) ---
DISCHARGE DIAGNOSES: 1. Status post robot-assisted thoracoscopic plication of left hemidiaphragm. 2. Left hemidiaphragm paralysis. 3. Pulmonary carcinoid. HOSPITAL COURSE: Kinsey is a very nice 64-year-old female that I met 6 months ago when she had a mass, which was growing in her left upper lobe and I performed a robot-assisted thoracoscopic left upper lobectomy and mediastinal lymphadenectomy without difficulty. She was noted to have an elevated left hemidiaphragm postoperatively. The patient recovered well; however, she has been markedly short of breath and dyspneic. She had been worked up by Dr. Ed Weathers from [facility] and she has a paralyzed left hemidiaphragm. It has not recovered in 6 months. We had a long discussion about this and she is so symptomatic that I offered to return her to the OR for a plication. On 02/01/2020, the patient underwent an uncomplicated robot-assisted left thoracoscopy with plication without difficulty. We had really no blood loss. However, she had a small air leak postop. I then noted that this persisted. Her lung was expanded. I was a bit concerned because she got some opacity in her left lower lobe and had a cough, although it was improving. I finally put her on quinolone as SHE IS ALLERGIC TO PENICILLIN. We are going to discharge her today on postoperative day #5 with a Heimlich valve in place. Her x-ray with a Heimlich valve in place looks good except for this opacity in the left lung base. I did pull the tube back several centimeters before resuturing it in place.She has drained very little fluid. We have her Heimlich valve set up and we will see her back in the office in 72 hours. Home Health will see her. She is really not having pain. I did not send her home on any narcotics, but I instructed her to take nonsteroidal anti-inflammatory drugs. She is to call me on my cell phone if she runs in any problems. JOHNSON
[2020-02-06 12:04] VITALS: PULSE 92
== END 2020-02-06 12:50 | disposition home or self-care (01) | DRG 164 ==
LOC: ASU 05:35 → 3W 11:19